=== PATIENT | female | born 1995 | race Caucasian/White ===

== ENCOUNTER 2016-11-01 07:53 | Emergency (ER) | payer OTHER ==
[~2016-11-01] VITALS: Ht 165.1 cm; Wt 90.4 kg
[~2016-11-01 07:53] MED LIST: ADDERALL XR 1010 MG PO; FLAGYL500 MG PO; FLEXERIL10 MG PO; IBUPROFEN800 MG PO; KEFLEX500 MG PO; LEXAPRO5 MG PO; MACROBID100 MG PO; MOTRIN600 MG PO; NAPROSYN500 MG PO; PEPCID20 MG PO; PYRIDIUM100 MG PO; TYLENOL WITH C1 EACH PO; ULTRAM50 MG PO; VIBRAMYCIN100 MG PO
[2016-11-01] MEDS ORDERED: FLONASE16 G1 BOTH NARES (10:28)
[2016-11-01] MEDS ORDERED: MUCUS ER600 MG PO (10:32)
[2016-11-01] MEDS ORDERED: ZYRTEC10 M2 PO (10:32)
[2016-11-01 10:52] VITALS: BP 117/84
== END 2016-11-01 10:53 | disposition home or self-care (01) ==
LOC: EME 07:53
DX: R51 Headache (principal); J30.2 Other seasonal allergic rhinitis; J02.9 Acute pharyngitis, unspecified; H92.03 Otalgia, bilateral; R42 Dizziness and giddiness; R11.0 Nausea; M54.5 Low back pain; R50.9 Fever, unspecified
CPT/HCPCS: 87651 90; 99281; 99283; J1885

== ENCOUNTER 2016-11-11 09:30 | Emergency (ER) | payer OTHER ==
[~2016-11-11] VITALS: Ht 165.1 cm; Wt 89.3 kg
[~2016-11-11 09:30] MED LIST changes: +FLONASE16 G1 BOTH NARES; +MUCUS ER600 MG PO; +ZYRTEC10 M2 PO
[2016-11-11 10:30] LABS: ADD MIUA? YES; BILIRUBIN NEGATIVE; BLOOD LARGE; COLOR AMBER ((YELLOW)); GLUCOSE (STRIP) NEGATIVE; INTERNAL CONTROL VALID? YES; KETONES NEGATIVE; LEUKOCYTES SMALL; NITRITE POSITIVE; PROTEIN (STRIP) 100; SPECIFIC GRAVITY 1.013 (1.000-1.030)
[2016-11-11 10:37] LABS: BACTERIA RARE /HPF; CALCIUM OXALATE CRYSTALS 3+ /HPF; EPITHELIAL CELLS RARE /HPF; MUCUS NONE SEEN /LPF; RED BLOOD CELLS TNTC /HPF (0-5); UCUL ADDED? YES; WHITE BLOOD CELLS TNTC /HPF (0-5)
[2016-11-11] MEDS ORDERED: MACROBID100 MG PO (10:52)
[2016-11-11 11:08] VITALS: BP 109/90
== END 2016-11-11 11:15 | disposition home or self-care (01) ==
LOC: EME 09:30
DX: N30.01 Acute cystitis with hematuria (principal)
CPT/HCPCS: 80048; 81003; 84484; 84703; 85027; 87086; 99281; 99283

== ENCOUNTER 2017-08-27 13:05 | Emergency (ER) | payer OTHER, BC ==
[~2017-08-27] VITALS: Ht 165.1 cm; Wt 90.0 kg
[2017-08-27] MEDS ORDERED: MOTRIN800 MG PO (15:18)
[2017-08-27] MEDS ORDERED: FLEXERIL10 MG PO (15:21)
[2017-08-27 15:44] VITALS: BP 127/77
== END 2017-08-27 15:45 | disposition home or self-care (01) ==
LOC: EME 13:05
DX: S20.219A Contusion of unspecified front wall of thorax, initial encounter (principal); V43.52XA Car driver injured in collision with other type car in traffic accident, initial encounter; Y92.410 Unspecified street and highway as the place of occurrence of the external cause; E11.9 Type 2 diabetes mellitus without complications; E03.9 Hypothyroidism, unspecified
CPT/HCPCS: 71101; 99281; 99283